=== PATIENT | male | born 1960 | race Two or more races ===

== ENCOUNTER 2017-03-18 20:34 | Inpatient (IN) | payer MEDICAID ==
[~2017-03-18] VITALS: Ht 170.2 cm; Wt 84.8 kg
[2017-03-18] MEDS ORDERED: ONDANSETRON HCL 4MG/2ML VIAL IV STA (22:28)
[2017-03-18] MEDS ORDERED: MORPHINE SULFATE 4 MG/ML CPJ (NOT FOR IM USE) IV STA (22:28)
[2017-03-18] MEDS ORDERED: ACETAMINOPHEN 325MG TABLET PO STA (22:28)
[2017-03-18] MEDS ORDERED: SODIUM CHLORIDE 0.9% 1000ML BAG (SEPSIS BOLUS) IV ONE (22:30)
[2017-03-18] MEDS ORDERED: TETANUS, DIPHTHERIA, PERTUSSIS VAC/PF 0.5ML (>7YR OLD) IM ONE (22:30)
[2017-03-18] MEDS ORDERED: LEVOFLOXACIN 750MG PREMIX 150 ML IV ONE (22:30)
[2017-03-18] MEDS ORDERED: VANCOMYCIN 1 G PREMIX 200 ML IV ONE (22:30)
[2017-03-18 23:33] LABS: BASOPHILS % 0.4 % (0.0-2.0); EOSINOPHILS % 1.2 % (0.0-5.0); HEMATOCRIT. 36.9 % (42.0-52.0); HEMOGLOBIN. 12.8 g/dL (14.0-18.0); LYMPHOCYTES % 15.7 % (20.0-50.0); MEAN CORPUSCULAR VOLUME 89.6 fL (80.0-94.0); MEAN PLATELET VOLUME 8.3 fl (7.4-10.4); MONOCYTES % 8.3 % (2.0-8.0); NEUTROPHILS % 74.4 % (40.0-76.0); PLATELET 216 x1000/uL (130-400); RED BLOOD CELL COUNT 4.11 mill/uL (4.7-6.1); RED CELL DISTRIBUTION WIDTH 13.9 % (11.6-14.6)
[2017-03-18 23:47] LABS: D-DIMER 1.17 mg/L FEU (<0.50); PROTHROMBIN TIME 10.5 sec (9.4-11.6)
[2017-03-18 23:50] LABS: CARBON DIOXIDE 28 mEq/L (21-32); CHLORIDE 99 mEq/L (98-107); ETHANOL BLOOD < 10 mg/dL; TROPONIN I < 0.02 ng/mL (0.00-0.04)
[2017-03-19] MEDS ORDERED: INSULIN REGULAR (HUMULIN R) 300UNITS/3ML IV NR (00:45)
[2017-03-19 01:05] LABS: CLARITY URINE CLEAR (CLEAR); COLOR URINE YELLOW (YELLOW); GLUCOSE URINE 3+ (NEGATIVE); KETONES URINE NEGATIVE (NEGATIVE); LEUKOCYTE ESTERASE URINE NEGATIVE (NEGATIVE); NITRITE URINE NEGATIVE (NEGATIVE); OCCULT BLOOD URINE NEGATIVE (NEGATIVE); PROTEIN URINE NEGATIVE (NEGATIVE); SPECIFIC GRAVITY URINE 1.026 (1.005-1.030); UROBILINOGEN URINE 0.2 E.U./dL (0.2-1.0)
[2017-03-19 01:15] LABS: *AMPHETAMINES SCREEN URINE NEGATIVE (NEGATIVE); *BARBITURATES SCREEN URINE NEGATIVE (NEGATIVE); *BENZODIAZEPINES SCREEN URINE NEGATIVE (NEGATIVE); *COCAINE SCREEN URINE NEGATIVE (NEGATIVE); CANNABINOID URINE SCREEN NEGATIVE (NEGATIVE); METHADONE URINE SCREEN NEGATIVE (NEGATIVE); OPIATES URINE SCREEN NEGATIVE (NEGATIVE); PHENCYCLIDINE URINE SCREEN NEGATIVE (NEGATIVE)
[2017-03-19 04:03] VITALS: BP 144/77
[2017-03-19] MEDS ORDERED: DEXTROSE 50% WATER 50ML SYRINGE IV PRN (06:30)
[2017-03-19] MEDS: SODIUM CHLORIDE 0.9% 1,000 ML IV SCH (06:35)
[2017-03-19] MEDS ORDERED: DIPHENHYDRAMINE 50MG/ML VIAL IV PRN (06:45)
[2017-03-19] MEDS ORDERED: PIPERACILLIN/TAZ 2.25G PREMIX 50 ML IV SCH (07:00)
[2017-03-19] MEDS ORDERED: ZOSYN PER PHARMACY XX SCH (07:15)
[2017-03-19] MEDS: BLOOD SUGAR DIAGNOSTIC STRIP TEST SCH ×4 (07:20→21:05)
[2017-03-19] MEDS: INSULIN LISPRO 100 UNITS/ML SUBCUT SCH ×4 (07:50→21:45)
[2017-03-19 08:00] VITALS: BP 138/75
[2017-03-19] MEDS: VANCOMYCIN 1 G PREMIX 200 ML IV SCH ×2 (09:00→20:59)
[2017-03-19] MEDS: ENOXAPARIN 40MG/0.4ML SYR SUBCUT SCH (09:00)
[2017-03-19] MEDS ORDERED: PNEUMOCOCCAL 23-VAL P-SAC VAC 0.5 ML IM ONE (10:00)
[2017-03-19] MEDS ORDERED: INFLUENZA VIRUS VACCINE 0.5ML SYR IM ONE (10:00)
[2017-03-19 10:19] LABS: BASOPHILS % 0.6 % (0.0-2.0); EOSINOPHILS % 0.5 % (0.0-5.0); HEMATOCRIT. 36.7 % (42.0-52.0); HEMOGLOBIN. 12.4 g/dL (14.0-18.0); LYMPHOCYTES % 13.5 % (20.0-50.0); MEAN CORPUSCULAR HEMOGLOBIN 30.3 pg (28.0-32.0); MEAN CORPUSCULAR VOLUME 89.6 fL (80.0-94.0); MEAN PLATELET VOLUME 8.1 fl (7.4-10.4); MONOCYTES % 6.1 % (2.0-8.0); NEUTROPHILS % 79.3 % (40.0-76.0); PLATELET 220 x1000/uL (130-400); RED BLOOD CELL COUNT 4.09 mill/uL (4.7-6.1)
[2017-03-19 10:28] LABS: CARBON DIOXIDE 28 mEq/L (21-32); CHLORIDE 102 mEq/L (98-107)
[2017-03-19 12:00] VITALS: BP 140/74
[2017-03-19] MEDS: PIPERACILLIN/TAZ 3.375G PREMIX 50 ML IV SCH ×2 (12:17→17:47)
[2017-03-19] MEDS ORDERED: NON FORMULARY PATIENT HOME MED EA XX SCH (13:15)
[2017-03-19] MEDS ORDERED: NON FORMULARY PATIENT HOME MED EA PO SCH (13:15)
[2017-03-19 16:00] VITALS: BP 145/76
[2017-03-19] MEDS: HYDROCHLOROTHIAZIDE 25MG TABLET PO SCH (17:46)
[2017-03-19] MEDS: METFORMIN HCL 500MG TABLET PO SCH (17:46)
[2017-03-19 20:00] VITALS: BP 147/71
[2017-03-19] MEDS: ATORVASTATIN CALCIUM 20MG TABLET PO SCH (20:59)
[2017-03-19] MEDS: HYDROCODONE/ACETAMINOPHEN 5/325MG TABLET PO PRN (21:39)
[2017-03-20] VITALS: BP 123/69
[2017-03-20] MEDS: PIPERACILLIN/TAZ 3.375G PREMIX 50 ML IV SCH ×3 (02:06→17:20)
[2017-03-20 04:00] VITALS: BP 154/90
[2017-03-20] MEDS: BLOOD SUGAR DIAGNOSTIC STRIP TEST SCH ×4 (06:58→20:52)
[2017-03-20] MEDS: SODIUM CHLORIDE 0.9% 1,000 ML IV SCH ×3 (07:02→17:20)
[2017-03-20 08:00] VITALS: BP 120/70
[2017-03-20] MEDS: HYDROCHLOROTHIAZIDE 25MG TABLET PO SCH (08:22)
[2017-03-20] MEDS: MULTIVITAMINS,THER W-MINERALS TABLET PO SCH (08:22)
[2017-03-20] MEDS: METFORMIN HCL 500MG TABLET PO SCH ×2 (08:22→17:19)
[2017-03-20] MEDS: LINAGLIPTIN 5MG TABLET PO SCH (08:22)
[2017-03-20] MEDS: TAMSULOSIN HCL 0.4MG SR CAPSULE PO SCH (08:23)
[2017-03-20] MEDS: VANCOMYCIN 1 G PREMIX 200 ML IV SCH ×2 (08:23→20:52)
[2017-03-20] MEDS: ENOXAPARIN 40MG/0.4ML SYR SUBCUT SCH (08:24)
[2017-03-20] MEDS: INSULIN LISPRO 100 UNITS/ML SUBCUT SCH ×4 (08:25→22:22)
[2017-03-20 08:47] LABS: BASOPHILS % 0.6 % (0.0-2.0); EOSINOPHILS % 1.1 % (0.0-5.0); HEMOGLOBIN. 13.1 g/dL (14.0-18.0); LYMPHOCYTES % 15.8 % (20.0-50.0); MEAN CORPUSCULAR HEMOGLOBIN 30.4 pg (28.0-32.0); MEAN CORPUSCULAR VOLUME 90.7 fL (80.0-94.0); MEAN PLATELET VOLUME 8.3 fl (7.4-10.4); MONOCYTES % 7.7 % (2.0-8.0); NEUTROPHILS % 74.8 % (40.0-76.0); PLATELET 241 x1000/uL (130-400); RED CELL DISTRIBUTION WIDTH 13.5 % (11.6-14.6)
[2017-03-20 09:17] LABS: CHLORIDE 97 mEq/L (98-107)
[2017-03-20 09:27] LABS: CARBON DIOXIDE 25 mEq/L (21-32)
[2017-03-20 12:00] VITALS: BP 130/60
[2017-03-20 16:00] VITALS: BP 123/80
[2017-03-20] MEDS: HYDROCODONE/ACETAMINOPHEN 5/325MG TABLET PO PRN (18:47)
[2017-03-20 20:00] VITALS: BP 112/72
[2017-03-20] MEDS: ATORVASTATIN CALCIUM 20MG TABLET PO SCH (20:52)
[2017-03-21] VITALS: BP 116/59
[2017-03-21] MEDS: PIPERACILLIN/TAZ 3.375G PREMIX 50 ML IV SCH ×4 (02:12→17:46)
[2017-03-21 04:00] VITALS: BP 108/65
[2017-03-21] MEDS: BLOOD SUGAR DIAGNOSTIC STRIP TEST SCH ×3 (06:32→17:11)
[2017-03-21 06:53] LABS: BASOPHILS % 0.5 % (0.0-2.0); EOSINOPHILS % 1.4 % (0.0-5.0); HEMATOCRIT. 36.6 % (42.0-52.0); HEMOGLOBIN. 12.7 g/dL (14.0-18.0); LYMPHOCYTES % 17.8 % (20.0-50.0); MEAN CORPUSCULAR HEMOGLOBIN 31.2 pg (28.0-32.0); MEAN CORPUSCULAR VOLUME 89.8 fL (80.0-94.0); MEAN PLATELET VOLUME 8.2 fl (7.4-10.4); NEUTROPHILS % 70.3 % (40.0-76.0); PLATELET 241 x1000/uL (130-400); RED BLOOD CELL COUNT 4.08 mill/uL (4.7-6.1); RED CELL DISTRIBUTION WIDTH 13.3 % (11.6-14.6)
[2017-03-21] MEDS: HYDROCODONE/ACETAMINOPHEN 5/325MG TABLET PO PRN (06:55)
[2017-03-21 07:30] LABS: CARBON DIOXIDE 27 mEq/L (21-32); CHLORIDE 98 mEq/L (98-107)
[2017-03-21 08:00] VITALS: BP 126/72
[2017-03-21] MEDS: HYDROCHLOROTHIAZIDE 25MG TABLET PO SCH (08:46)
[2017-03-21] MEDS: TAMSULOSIN HCL 0.4MG SR CAPSULE PO SCH (08:46)
[2017-03-21] MEDS: VANCOMYCIN 1 G PREMIX 200 ML IV SCH (08:46)
[2017-03-21] MEDS: MULTIVITAMINS,THER W-MINERALS TABLET PO SCH (08:47)
[2017-03-21] MEDS: LINAGLIPTIN 5MG TABLET PO SCH (08:47)
[2017-03-21] MEDS: METFORMIN HCL 500MG TABLET PO SCH ×2 (08:47→17:45)
[2017-03-21] MEDS: INSULIN LISPRO 100 UNITS/ML SUBCUT SCH ×3 (08:53→17:50)
[2017-03-21] MEDS: ENOXAPARIN 40MG/0.4ML SYR SUBCUT SCH (09:04)
[2017-03-21] MEDS: SODIUM CHLORIDE 0.9% 1,000 ML IV SCH (11:33)
[2017-03-21 12:00] VITALS: BP 132/68
[2017-03-21] MEDS ORDERED: CLIN300C11 PO (12:38)
[2017-03-21] MEDS ORDERED: IBUP-2030 PO (12:38)
[2017-03-21 16:00] VITALS: BP 128/65
[2017-03-21] MEDS ORDERED: MAGNESIUM 2 G PREMIX 50 ML IV NR (16:00)
[2017-03-21 18:26] VITALS: BP 132/68
== END 2017-03-21 18:55 | disposition home or self-care (01) | DRG 383 ==
LOC: ER 20:34 → 6EST 03-19 00:30 → ENRESERV 03-19 02:06
PROVIDERS: ADMIT Internal Medicine; ATTEND Internal Medicine
DX: L03.115 Cellulitis of right lower limb (principal); R65.10 Systemic inflammatory response syndrome (SIRS) of non-infectious origin without acute organ dysfunction; I11.9 Hypertensive heart disease without heart failure; E11.65 Type 2 diabetes mellitus with hyperglycemia; D64.9 Anemia, unspecified
CPT/HCPCS: 36415; 71010; 73630; 80048; 80053; 80202; 80305; 81001; 82962; 83036; 83605; 83735; 83880; 84484; 85025; 85379; 85610; 87040; 90471; 90686; 90715; 90732; 93005; 93971; 96365; 96368; 96375; 99285; G0482; J1200; J1650; J1815; J1956; J2405; J2543; J3370; J3475; J7030